=== PATIENT | male | born 1945 | race Caucasian/White ===

== ENCOUNTER 2021-07-02 13:00 | Observation (INO) | payer MEDICARE ==
[~2021-07-02] VITALS: Ht 172.7 cm; Wt 96.6 kg
[~2021-07-02 13:00] MED LIST: LISI10TA24 PO
[2021-07-02 14:09] LABS: BASOPHILS % (AUTO) 1.6 % (0.0-5.0); EOSINOPHILS % (AUTO) 1.2 % (0.0-8.0); LYMPHOCYTES % (AUTO) 16.8 % (21.0-51.0); MEAN CORPUSCULAR HGB CONC 30.3 g/dL (32.0-36.0); MEAN CORPUSCULAR VOLUME 92.6 fL (79-99); MONOCYTES % (AUTO) 9.3 % (3.0-13.0); NEUTROPHILS % (AUTO) 70.7 % (40.0-77.0); PLATELET COUNT (AUTO) 363 K/uL (130-400); RED BLOOD CELL COUNT(AUTO) 4.21 MIL/uL (4.50-6.20); RED CELL DISTRIBUTION WIDTH 19.1 % (11.0-15.5); WHITE BLOOD COUNT (AUTO) 7.7 K/uL (4.8-10.8)
[2021-07-02 14:17] LABS: CREATININE 1.4 mg/dL (0.5-1.5); POTASSIUM 4.8 mmol/L (3.5-5.1)
[2021-07-02 14:20] LABS: INR 1.61 (0.85-1.15); PROTHROMBIN TIME 16.8 SEC (9.6-11.6)
[2021-07-02 14:22] LABS: PARTIAL THROMBOPLASTIN TIME 25.6 SEC (26.3-35.5)
[2021-07-09 12:51] VITALS: BP 138/63
[2021-07-09] MEDS ORDERED: OMEP20CA12 PO (13:15)
[2021-07-10] VITALS (23 sets, daily range): BP systolic 74–146; BP diastolic 45–83
[2021-07-10] MEDS ORDERED: VANCOMYCIN 1G/250ML KIT 250 ML IV SCH (06:00)
[2021-07-10] MEDS ORDERED: BACITRACIN 28.4 GM OINT TP ONE (07:00)
[2021-07-10] MEDS ORDERED: LIDOCAINE 1%-EPI 1:100,000 20 ML VIAL IJ ONE (07:00)
[2021-07-10] MEDS ORDERED: LACTATED RINGERS 1000ML 1,000 ML IV ONE (07:14)
[2021-07-10 07:59] LABS: INR 0.97 (0.85-1.15); PROTHROMBIN TIME 10.6 SEC (9.6-11.6)
[2021-07-10 08:01] LABS: PARTIAL THROMBOPLASTIN TIME 25.9 SEC (26.3-35.5)
[2021-07-10] MEDS ORDERED: LIDOCAINE PF 100MG/5ML (2%) SYRINGE 5ML ONE (08:24)
[2021-07-10] MEDS ORDERED: MIDAZOLAM HCL 1 MG/ML 2ML VIAL ONE (08:24)
[2021-07-10] MEDS ORDERED: SUCCINYLCHOLINE CHLORIDE 20 MG/ML 10 ML VIAL ONE (08:24)
[2021-07-10] MEDS ORDERED: ONDANSETRON 4MG INJ ONE (08:24)
[2021-07-10] MEDS ORDERED: ROCURONIUM 10MG/1ML SYR 10 MG/ML ML ONE (08:25)
[2021-07-10] MEDS ORDERED: FENTANYL CITRATE PF 50 MCG/1 ML 2ML VIAL ONE ×2 (08:25→08:45)
[2021-07-10] MEDS ORDERED: PROPOFOL 10 MG/ML 20ML VIAL IV ONE (08:25)
[2021-07-10] MEDS ORDERED: EPHEDRINE SULFATE 50 MG/ML AMPULE ONE (08:47)
[2021-07-10] MEDS ORDERED: PHENYLEPHRINE HCL 10 MG/ML 1ML VIAL IV ONE (08:58)
[2021-07-10] MEDS ORDERED: FENTANYL CITRATE PF 50 MCG/1 ML 5ML AMP IV ONE (09:59)
[2021-07-10] MEDS ORDERED: IBUPROFEN 200 MG TAB PO PRN (15:00)
[2021-07-10] MEDS ORDERED: ONDANSETRON 4MG INJ IVP PRN (15:00)
[2021-07-10] MEDS ORDERED: HYDROMORPHONE 0.5 MG SYG (0.5MG/0.5ML) IVP PRN (15:00)
[2021-07-10] MEDS ORDERED: ACETAMINOPHEN 500 MG TABLET PO PRN (15:00)
[2021-07-10] MEDS: LACTATED RINGERS 1000ML 1,000 ML IV SCH ×2 (18:43→20:42)
[2021-07-11 00:09] VITALS: BP 106/50
[2021-07-11 04:35] VITALS: BP 109/66
[2021-07-11 08:57] VITALS: BP 122/60
[2021-07-11] MEDS ORDERED: PANTOPRAZOLE 40 MG TAB DR PO SCH (09:00)
[2021-07-11] MEDS ORDERED: LISINOPRIL 10 MG TABLET PO SCH (09:00)
[2021-07-11 11:07] VITALS: BP 123/62
== END 2021-07-11 12:54 | disposition home or self-care (01) ==
LOC: DAHIP 07-10 06:19 → EDSTATUS 07-10 13:00 → 3CH 07-10 13:27
PROVIDERS: ADMIT Otolaryngology; ATTEND Otolaryngology
DX: D11.9 Benign neoplasm of major salivary gland, unspecified (principal); Z20.822 Contact with and (suspected) exposure to COVID-19; D49.0 Neoplasm of unspecified behavior of digestive system; D11.0 Benign neoplasm of parotid gland; Z79.899 Other long term (current) drug therapy; Z98.890 Other specified postprocedural states
CPT/HCPCS: 36415 ×2; 42415; 71045; 80048; 82948; 85025; 85610 ×2; 85730 ×2; 87635; 88305; 88307; 88331; 93005; 96365; A4215; A4221; A4222; A4223; A4344; A4510; A4600; A4649 ×2; A4663; A4930; A6207; A6260; G0378 ×27; J0330; J2001; J2250; J2370; J2405; J2704; J3010 ×3; J3370 ×3; J3490 ×2; J7030; J7120 ×2

== ENCOUNTER → 2022-11-24 | Outpatient (CLI) | payer MEDICARE ==
[~2022-11-24] MED LIST changes: +IOHEXOL 350 MG/ML 100ML INFUS..BTL IV ONE; +OMEP20CA12 PO
== END | disposition home or self-care (01) ==
LOC: RAH 10:42
PROVIDERS: ATTEND Dermatology
DX: I67.82 Cerebral ischemia (principal); C44.42 Squamous cell carcinoma of skin of scalp and neck
CPT/HCPCS: 70470; Q9967

== ENCOUNTER → 2022-12-10 | Outpatient (CLI) | payer MEDICARE ==
[~2022-12-10] MED LIST changes: +GLUCOSAMINE PO; -IOHEXOL 350 MG/ML 100ML INFUS..BTL IV ONE; +IOHEXOL-350 50ML VIAL IV ONE
== END | disposition home or self-care (01) ==
LOC: RAH 10:25
PROVIDERS: ATTEND Dermatology
DX: C44.42 Squamous cell carcinoma of skin of scalp and neck (principal); J34.89 Other specified disorders of nose and nasal sinuses; I65.23 Occlusion and stenosis of bilateral carotid arteries
CPT/HCPCS: 70492; Q9967

== ENCOUNTER 2022-12-17 06:03 | Day surgery (SDC) | payer MEDICARE ==
[2022-12-10 13:08] LABS: BASOPHILS % (AUTO) 3.1 % (0.0-5.0); EOSINOPHILS % (AUTO) 2.2 % (0.0-8.0); HEMATOCRIT 44.1 % (42-54); LYMPHOCYTES % (AUTO) 21.1 % (21.0-51.0); MEAN CORPUSCULAR HEMOGLOBIN 30.9 pg (27.0-33.0); MEAN CORPUSCULAR VOLUME 96.5 fL (79-99); MONOCYTES % (AUTO) 13.5 % (3.0-13.0); NEUTROPHILS % (AUTO) 59.7 % (40.0-77.0); PLATELET COUNT (AUTO) 309 K/uL (130-400); RED BLOOD CELL COUNT(AUTO) 4.57 MIL/uL (4.50-6.20); RED CELL DISTRIBUTION WIDTH 17.1 % (11.0-15.5); WHITE BLOOD COUNT (AUTO) 5.1 K/uL (4.8-10.8)
[2022-12-10 13:16] VITALS: BP 137/75
[2022-12-10 13:20] LABS: ALBUMIN 4.1 g/dL (3.5-5.0); BILIRUBIN,DIRECT 0.2 mg/dL (0.0-0.3); POTASSIUM 4.8 mmol/L (3.5-5.1); TOTAL PROTEIN, SERUM 8.6 g/dL (6.0-8.3)
[2022-12-10 13:27] LABS: INR 0.93 (0.85-1.15); PROTHROMBIN TIME 10.2 SEC (9.6-11.6)
[2022-12-10 13:28] LABS: PARTIAL THROMBOPLASTIN TIME 28.5 SEC (26.3-35.5)
[2022-12-10 13:40] VITALS: BP 137/75
[~2022-12-17] VITALS: Ht 172.7 cm; Wt 92.6 kg
[2022-12-17] VITALS (33 sets, daily range): BP systolic 84–119; BP diastolic 47–72
[~2022-12-17 06:03] MED LIST changes: -IOHEXOL-350 50ML VIAL IV ONE; -OMEP20CA12 PO; +VANCOMYCIN 1G/250ML KIT 250 ML IV SCH
[2022-12-17] MEDS ORDERED: LACTATED RINGERS 1000ML 1,000 ML IV ONE (06:57)
[2022-12-17] MEDS ORDERED: CEFAZOLIN SODIUM 1 GM VIAL ONE ×2 (08:15→10:39)
[2022-12-17] MEDS ORDERED: MINERAL OIL 30 ML UDCUP ONE (10:01)
[2022-12-17] MEDS ORDERED: BACITRACIN 28.4 GM OINT TP ONE (10:03)
[2022-12-17] MEDS ORDERED: LIDOCAINE PF 100MG/5ML (2%) SYRINGE 5ML ONE (10:05)
[2022-12-17] MEDS ORDERED: GLYCOPYRROLATE 1 MG/5 ML SYRINGE ONE (10:06)
[2022-12-17] MEDS ORDERED: FENTANYL CITRATE PF 50 MCG/1 ML 2ML VIAL ONE (10:06)
[2022-12-17] MEDS ORDERED: PROPOFOL 10 MG/ML 20ML VIAL IV ONE (10:06)
[2022-12-17] MEDS ORDERED: ROCURONIUM 10MG/1ML SYR 10 MG/ML ML ONE ×2 (10:06→12:20)
[2022-12-17] MEDS ORDERED: CEFAZOLIN SODIUM 2 GM VIAL IVPB ONE (10:20)
[2022-12-17] MEDS ORDERED: EPHEDRINE SULFATE 50 MG/ML AMPULE ONE ×2 (10:42→14:10)
[2022-12-17] MEDS ORDERED: BUPIVACAINE/EPI/PF 0.25% 50 ML VIAL IJ ONE (10:51)
[2022-12-17] MEDS ORDERED: ONDANSETRON 4MG INJ ONE (11:03)
[2022-12-17] MEDS ORDERED: NEOSTIGMINE 5MG/5ML SYR IV ONE (12:48)
[2022-12-17] MEDS ORDERED: PHENYLEPHRINE HCL 10 MG/ML 1ML VIAL IV ONE (13:14)
== END 2022-12-17 16:00 | disposition home or self-care (01) ==
LOC: DAH 06:03
PROVIDERS: ATTEND Otolaryngology Plastic Surgery within the Head & Neck
DX: C44.42 Squamous cell carcinoma of skin of scalp and neck (principal); Z20.822 Contact with and (suspected) exposure to COVID-19; C44.319 Basal cell carcinoma of skin of other parts of face; I10 Essential (primary) hypertension; K21.9 Gastro-esophageal reflux disease without esophagitis; E66.9 Obesity, unspecified; Z98.890 Other specified postprocedural states; Z90.49 Acquired absence of other specified parts of digestive tract; Z79.899 Other long term (current) drug therapy; Z87.891 Personal history of nicotine dependence; Z68.33 Body mass index [BMI] 33.0-33.9, adult; Z79.01 Long term (current) use of anticoagulants
CPT/HCPCS: 80076; 80048; 85025; 85610; 85730; 87426; 36415; 93005; 11646; 15120; 88305 ×2; A6260; A4663; A6207; A4606; J7120; J3010; J0690 ×3; J3490 ×4; J2710; J2001; J2704; J2405; J2370; A6223; A4930; A4215; A4223; A4222; A4221; A4649 ×3; A4600